=== PATIENT | female | born 1955 | race Caucasian/White ===

== ENCOUNTER → 2017-07-15 | Outpatient (CLI) | payer OTHER, BC ==
--- NOTE | 2017-07-15 13:52 | RAD ---
EXAM: Bilateral diagnostic mammogram; bilateral breast sonogram. HISTORY: 61-year-old female presents for follow-up avulsion of nodularity within the right breast demonstrated on a mammogram and sonogram dated 05/08/2016. The patient did not return at the recommended 6 month follow-up interval. The patient is now due for annual mammography of the contralateral breast. TECHNIQUE: Full field digital and spot compression views of both breasts are obtained. Computer aided detection is applied. Sonographic imaging of both breasts including all 4 quadrants of the right dural regions was performed. COMPARISON: 05/08/2016 and 04/18/2016. FINDINGS: Breast parenchymal composition: Level B - Scattered fibroglandular densities. There is a nodular density within the slightly medial aspect of the left breast at mid depth which persists on cortical spot compression and rolled cortical images. This is retrospectively similar compared to the prior study, allowing for differences in patient positioning and compression technique. There are nodular densities within the lateral aspect of the right breast at approximately the 7:00 to 8:00 position which are stable compared to the prior study, allowing for differences in technique. There is no suspicious calcification or distortion within either breast. Sonographic imaging of the right breast demonstrates a 9 mm hypoechoic lesion with internal echoes at the 7:00 position 4 cm from the nipple. This is similar compared to the prior study, when allowing for differences in imaging technique. This demonstrates no internal blood flow or posterior shadowing. The margins of this lesion are indistinct. There is a smaller hypoechoic lesion at the 8:30 o'clock position 3 cm from the nipple measuring 3 mm, stable in appearance. Sonographic imaging of the left breast demonstrates no suspicious finding. IMPRESSION: 1. Subcentimeter lesion within the 7:00 position of the right breast. The sonographic and mammographic features are similar compared to the prior studies, allowing for differences in technique. The appearance favors a benign fibrocystic lesion or cluster of cysts. However, given indistinct lesion margins, short-term follow-up with a right breast sonogram in 6 months is recommended to confirm a greater than one-year course of stability. 2. Tiny lesion within the 8:30 o'clock position of the right breast, stable in appearance. The interval stability and mammographic and sonographic appearance favor a complex cyst. 3. Persistent nodularity within the slightly medial aspect of the left breast, without a sonographic correlate. Short-term follow-up with a left breast diagnostic mammogram in 6 months is recommended to confirm stability. 4. BI-RADS Category 3: Probably benign findings. Short-term follow-up with a right breast sonogram and left breast diagnostic mammogram in 6 months is recommended. BI-RADS CATEGORY: 3 PROBABLE BENIGN-SHORT TERM F/U RECOMMENDED FOLLOW-UP: 6M 6 MONTH FOLLOW-UP PQRS compliance statement: Patient information was entered into a reminder system with a target due date in 6 months for the next mammogram and sonogram. Mammography is a sensitive method for finding small breast cancers, but it does not detect them all and is not a substitute for careful clinical examination. A negative mammogram does not negate a clinically suspicious finding and should not result in delay in biopsying a clinically suspicious abnormality. "Our facility is accredited by the [employer] Mammography Program."
== END | disposition home or self-care (01) ==
LOC: MAMMO 12:35
PROVIDERS: ATTEND Internal Medicine
DX: R92.8 Other abnormal and inconclusive findings on diagnostic imaging of breast (principal)
CPT/HCPCS: 76641; G0204; 77066

== ENCOUNTER → 2018-02-03 | Outpatient (CLI) | payer BC, OTHER | END | disposition home or self-care (01) | LOC: MAMMO 11:55 | DX: N63.10 Unspecified lump in the right breast, unspecified quadrant (principal); N63.20 Unspecified lump in the left breast, unspecified quadrant | CPT/HCPCS: 76641; 77065 ==

== ENCOUNTER 2021-10-17 15:17 | Emergency (ER) | payer BC ==
[~2021-10-17] VITALS: Ht 160 cm; Wt 113.8 kg
--- NOTE | 2021-10-17 17:53 | PHYS DOC ---
General Adult EDM: Chief Complaint: SHORTNESS OF BREATH HPI: HPI: Patient is a 66-year-old female who presents to the emergency department today for shortness of breath and a productive cough that started yesterday. She reports that she was sent by her primary care provider for wheezing and an elevated blood pressure. Patient's blood pressure is elevated in the emergency department at 190/76. She states that she takes metoprolol and lisinopril and took her medications as directed. Patient denies any fevers, sick exposures, nausea, vomiting, loss of taste or smell, chest pain. She states that she has a history of asthma that is worse in the winter but does not have any inhalers at home to take. She has been taking Mucinex and reports improvement in her symptoms following that. Patient's vital signs are stable, she is not tachycardic nor hypoxic. (SCOTT VERDIN APRN) Review of Systems: Review of Systems: 14 body systems of the review of systems have been reviewed. See HPI for pertinent positive and negative responses, otherwise all other systems are negative, nonpertinent or noncontributory (SCOTT VERDIN APRN) Heart Score: C/O Chest Pain: No Risk Factors: Risk Factors: DM, Current or recent (<one month) smoker, HTN, HLP, family history of CAD, obesity. Risk Scores: Score 0 - 3: 2.5% MACE over next 6 weeks - Discharge Home Score 4 - 6: 20.3% MACE over next 6 weeks - Admit for Clinical Observation Score 7 - 10: 72.7% MACE over next 6 weeks - Early Invasive Strategies (SCOTT VERDIN APRN) Current Medications: Current Medications Medications (Trade) Dose Ordered Sig/April Start Time Stop Time Status Last Admin Dose Admin Albuterol/ Ipratropium (Duoneb) 3 ml 1X ONCE 10/17/21 18:00 10/17/21 18:01 UNV (SCOTT VERDIN APRN) Allergies: Allergies: Allergies Coded Allergies Type Severity Reaction Last Updated Verified Sulfa (Sulfonamide Antibiotics) Allergy Severe throat swelling 10/17/21 Yes Penicillins Allergy Intermediate 10/17/21 Yes (SCOTT VERDIN APRN) Physical Exam: PE: Constitutional: Well developed, well nourished, no acute distress, non-toxic appearance. [] HENT: Normocephalic, atraumatic, bilateral external ears normal, oropharynx moist, no oral exudates, nose normal. [] Eyes: PERRL, EOMI, conjunctiva normal, no discharge. [] Neck: Normal range of motion, no tenderness, supple, no stridor. [] Cardiovascular:Heart rate regular rhythm, no murmur [] Lungs & Thorax: Wheezing noted throughout Abdomen: Bowel sounds normal, soft, no tenderness, no masses, no pulsatile masses. [] Skin: Warm, dry, no erythema, no rash. [] Back: Normal range of motion Extremities: No tenderness, no cyanosis, no clubbing, ROM intact, no edema. [] Neurologic: Alert and oriented X 3, normal motor function, normal sensory function, no focal deficits noted. [] Psychologic: Affect normal, judgement normal, mood normal. [] (SCOTT VERDIN APRN) Current Patient Data: Labs: Laboratory Tests Test 10/17/21 18:00 10/17/21 18:03 White Blood Count 6.4 x10^3/uL Red Blood Count 4.48 x10^6/uL Hemoglobin 13.3 g/dL Hematocrit 39.7 % Mean Corpuscular Volume 88 fL Mean Corpuscular Hemoglobin 30 pg Mean Corpuscular Hemoglobin Concent 34 g/dL Red Cell Distribution Width 14.1 % Platelet Count 247 x10^3/uL Neutrophils (%) (Auto) 66 % Lymphocytes (%) (Auto) 20 % Monocytes (%) (Auto) 12 % Eosinophils (%) (Auto) 2 % Basophils (%) (Auto) 1 % Neutrophils # (Auto) 4.2 x10^3/uL Lymphocytes # (Auto) 1.3 x10^3/uL Monocytes # (Auto) 0.8 x10^3/uL Eosinophils # (Auto) 0.1 x10^3/uL Basophils # (Auto) 0.0 x10^3/uL Sodium Level 141 mmol/L Potassium Level 3.5 mmol/L Chloride Level 102 mmol/L Carbon Dioxide Level 26 mmol/L Anion Gap 13 Blood Urea Nitrogen 9 mg/dL Creatinine 0.7 mg/dL Estimated GFR (Cockcroft-Gault) 84.0 BUN/Creatinine Ratio 13 Glucose Level 104 mg/dL Calcium Level 8.0 mg/dL Total Bilirubin 0.5 mg/dL Aspartate Amino Transf (AST/SGOT) 9 U/L Alanine Aminotransferase (ALT/SGPT) 23 U/L Alkaline Phosphatase 104 U/L Troponin I High Sensitivity 6 ng/L Total Protein 7.7 g/dL Albumin 3.4 g/dL Albumin/Globulin Ratio 0.8 Influenza Type A Antigen Negative Influenza Type B Antigen Negative Current Medications Medications (Trade) Dose Ordered Sig/April Route PRN Reason Start Time Stop Time Status Last Admin Dose Admin Albuterol/ Ipratropium (Duoneb) 3 ml 1X ONCE NEB 10/17/21 18:00 10/17/21 18:01 DC 10/17/21 18:19 Methylprednisolone Sodium Succinate (SOLU-Medrol 125MG VIAL) 125 mg 1X ONCE IV 10/17/21 18:45 10/17/21 18:46 DC 10/17/21 18:45 (SCOTT VERDIN APRN) EKG: EKG: EKG performed by ER staff at 1759 shows sinus rhythm with a rate of 65, QTC of 433, no STEMI read by Dr. Rojas at 1801 [] (SCOTT VERDIN APRN) Radiology/Procedures: Radiology/Procedures: []PROCEDURE: PORTABLE CHEST 1V Exam: Chest one view INDICATION: Short of air TECHNIQUE: Frontal view of the chest Comparisons: None FINDINGS: The cardiomediastinal silhouette and pulmonary vessels are within normal limits. The lung and pleural spaces are clear. IMPRESSION: No acute cardiopulmonary process. Electronically signed by: Maria Luz Lopez MD (10/17/2021 5:58 PM) [facility] DICTATED and SIGNED BY: MARIA LUZ LOPEZ MD DATE: 10/17/21 [id number] (SCOTT VERDIN APRN) Course & Med Decision Making: Course & Med Decision Making Pertinent Labs and Imaging studies reviewed. (See chart for details) [] Patient presents to the emergency department for shortness of breath and a productive cough that started yesterday. Patient reports that her primary care provider sent her to the emergency department for wheezing and elevated blood pressure. Patient's blood pressure is elevated in the emergency department today at 190/76. She takes metoprolol and lisinopril and has been taking them as directed. Patient also has a history of asthma but does not have any inhalers at home. Following breathing treatment in the emergency department and steroid, patient's lung sounds have improved. Patient reports improvement in her symptoms. Work-up in the ER consisted of blood work, influenza and Covid testing, chest x-ray and EKG. Patient treated with a breathing treatment. Patient's blood work was unremarkable. He had a negative chest x-ray. Rapid influenza test was negative. EKG did not show any acute abnormalities. Patient's blood pressure continued to be elevated in the emergency department but there is no evidence of endorgan dysfunction, she denies any chest pain. Otherwise, patient's remaining vital signs are stable, she is not tachycardic or hypoxic. Covid test is pending and patient will be notified of those results when they become available in approximately 1 to 2 days, advised to self isolate until she receives these results. Patient is likely experiencing an asthma exacerbation, her albuterol inhaler was refilled and she was discharged home with a steroid. I discussed with patient all findings and diagnostic testing as well as the need to follow-up with PCP for further evaluation and treatment or return to the ER if any new or worsening symptoms. Strict return precautions were also discussed at length. Patient voiced understanding and agreement with the plan. Patient is hemodynamically stable at the time of disposition. (SCOTT VERDIN APRN) Course & Med Decision Making Patients Care and treatment plan provided by ER Nurse Practitioner. I was available for consult. Patient's chart reviewed. (RAMIN BARGER DO) Zamzam Disclaimer: Zamzam Disclaimer: This electronic medical record was generated, in whole or in part, using a voice recognition dictation system. (SCOTT VERDIN APRN) Departure Departure Impression: Primary Impression: Person under investigation for COVID-19 Additional Impression: Asthma exacerbation Qualified Codes: J45.901 - Unspecified asthma with (acute) exacerbation Disposition: HOME / SELF CARE / HOMELESS Condition: GOOD Referrals: SENIA PAINTER MD (PCP) Patient Instructions: Asthma, Adult Additional Instructions: You were seen in the emergency department today for shortness of breath and a cough. Your work-up in the ER was unremarkable. Your influenza test was negative. Your blood pressure was noted to be elevated in the emergency department, I would follow-up with your primary care provider tomorrow regarding this finding. Your chest x-ray showed no acute findings. It is likely that you are experiencing an asthma exacerbation. Please use the inhalers as directed. You are also being discharged home with a steroid. We tested you in the emergency department for COVID-19 and you will be notified of those results when they become available in approximately 1 to 2 days. Please self isolate until you receive these results. I strongly urge you to call your primary care provider tomorrow to set up a follow-up appointment. Please return to the emergency department if you develop worsening of your shortness of breath, chest pain, high fevers refractory to treatment, intractable nausea or vomiting, weakness or any new or worsening concerns. Scripts Prednisone (PREDNISONE) 20 Mg Tablet 3 TAB PO DAILY for 5 Days, #15 TAB 0 Refills Prov: SCOTT VERDIN APRN 10/17/21 Albuterol Sulfate (Proair Hfa) 8.5 Gm Hfa.aer.ad 2 PUFF IH PRN Q4-6HRS PRN for wheezing for 21 Days, #1 INHALER 0 Refills Prov: SCOTT VERDIN APRN 10/17/21 SCOTT VERDIN APRN Oct 17, 2021 17:53 RAMIN BARGER DO Oct 18, 2021 06:07
[2021-10-17] MEDS ORDERED: IPRATRPIUM/ALBUTEROL 0.5/2.5MG 3 ML NEBU. NEB ONE (18:00)
--- NOTE | 2021-10-17 18:00 | RAD ---
Exam: Chest one view INDICATION: Short of air TECHNIQUE: Frontal view of the chest Comparisons: None FINDINGS: The cardiomediastinal silhouette and pulmonary vessels are within normal limits. The lung and pleural spaces are clear. IMPRESSION: No acute cardiopulmonary process. Electronically signed by: Maria Luz Perez MD (10/17/2021 5:58 PM) DANIEL
[2021-10-17 18:19] LABS: BASO % 1 % (0-3); EOS # 0.1 x10^3/uL (0.0-0.7); EOS % 2 % (0-3); HEMATOCRIT 39.7 % (36.0-47.0); HEMOGLOBIN 13.3 g/dL (12.0-15.5); LYMPH # 1.3 x10^3/uL (1.0-4.8); LYMPH % 20 % (24-48); MEAN CORPUSCULAR HEMOGLOBIN 30 pg (25-35); MEAN CORPUSCULAR HGB CONC 34 g/dL (31-37); MEAN CORPUSCULAR VOLUME 88 fL (79-100); MONO # 0.8 x10^3/uL (0.0-1.1); MONO % 12 % (0-9); NEUT # 4.2 x10^3/uL (1.8-7.7); NEUT % 66 % (31-73); PLATELET COUNT 247 x10^3/uL (140-400); RED BLOOD COUNT 4.48 x10^6/uL (3.50-5.40); RED CELL DISTRIBUTION WIDTH 14.1 % (11.5-14.5); WHITE BLOOD COUNT 6.4 x10^3/uL (4.0-11.0)
[2021-10-17 18:38] LABS: CREATININE 0.7 mg/dL (0.6-1.0); POTASSIUM 3.5 mmol/L (3.5-5.1)
[2021-10-17 18:44] LABS: ALBUMIN 3.4 g/dL (3.4-5.0); ALBUMIN/GLOBULIN RATIO 0.8 (1.0-1.7); TOTAL BILIRUBIN 0.5 mg/dL (0.2-1.0); TOTAL PROTEIN 7.7 g/dL (6.4-8.2)
[2021-10-17] MEDS ORDERED: methylPREDNISolone SOD SUCC PF 125 MG/2 ML VIAL. IV ONE (18:45)
[2021-10-17 18:51] LABS: INFLUENZA A PATIENT NEGATIVE (NEGATIVE); INFLUENZA B PATIENT NEGATIVE (NEGATIVE)
[2021-10-17] MEDS ORDERED: PRED20TA PO (19:18)
[2021-10-17] MEDS ORDERED: ALBU2.5V8 IH (19:18)
--- NOTE | 2021-10-17 19:21 | EKG ---
[facility] [address] [place] [address] Test Date: 2021-10-17 Test Time: 17:59:28 Pat Name: SHAYY HARRIS Department: Room: Gender: F Telemedicine Physician: : [id number] Requested By: SCOTT VERDIN Order Number: [id number] Reading MD: Omar Corona Measurements Intervals [place] Rate: 65 P: [place]: QRS: 31 QRSD: 78 T: 58 QT: 416 QTc: 433 Interpretive Statements SINUS RHYTHM Electronically Signed On 10-21-2021 12:21:10 [employer] by Omar Corona
[2021-10-17] MEDS ORDERED: ALBUTEROL SULFATE 2.5 MG/3 ML NEBU. CONT NEB ONE (20:15)
[2021-10-17 20:59] VITALS: BP 160/69
--- NOTE | 2021-10-18 16:45 | NUR ---
IP: Attempted to contact pt concerning covid results. no answer, left a voicemail to return the call. Addendum: 10/18/21 at 1658 by DEBBI GRIFFIN RN Pt returned my call. I informed her of the negative covid test. Pt verbalized understanding.
== END 2021-10-17 21:15 | disposition home or self-care (01) ==
LOC: ER 15:17
DX: J45.901 Unspecified asthma with (acute) exacerbation (principal); Z20.822 Contact with and (suspected) exposure to COVID-19; Z88.0 Allergy status to penicillin; Z88.2 Allergy status to sulfonamides
CPT/HCPCS: 36415; 71045; 80053; 84484; 85025; 87804; 93005; 94640; 94644; 96374; 99285; J2930; J7613; U0003; U0005